=== PATIENT | female | born 1965 | race Caucasian/White ===

== ENCOUNTER → 2021-02-07 | Outpatient (CLI) | payer OTHER ==
[~2021-02-07] MED LIST: ASPIR 8181 MG PO; BENTYL 20MG TAB20 MG PO; FLEXERIL 10 MG10 MG PO; IBUPROFEN600 MG PO; PENVEE K 500 M500 MG PO; TENORMIN 25 MG25 MG PO; ZOFRAN ODT 4 MG4 MG PO
[2021-02-08 12:12] LABS: RHEUMATOID ARTHRITIS FACTOR <10.0 IU/mL (0.0-13.9)
[2021-02-09 00:06] LABS: CCP ANTIBODIES IGG/IGA 3 units (0-19)
== END ==
LOC: LAB 11:06
PROVIDERS: Nurse Practitioner Family
DX: M25.562 Pain in left knee (principal); M25.561 Pain in right knee; M25.50 Pain in unspecified joint; D89.9 Disorder involving the immune mechanism, unspecified; R76.8 Other specified abnormal immunological findings in serum; M17.0 Bilateral primary osteoarthritis of knee
CPT/HCPCS: 36415; 73565; 82550; 82728; 83520; 85652; 86140; 86200; 86431

== ENCOUNTER 2022-04-16 10:00 | Emergency (ER) | payer MEDICARE, OTHER ==
[2022-04-16 11:36] LABS: HEMOGLOBIN 14.8 gm/dl (12.3-15.3); RED BLOOD COUNT 4.82 M/UL (4.00-5.10); WHITE BLOOD COUNT 10.9 K/UL (4.5-11.0)
[2022-04-16 12:06] LABS: BUN/CREATININE RATIO 16 (0-10)
[2022-04-16] MEDS ORDERED: ECOTRIN81 MG PO (13:08)
== END 2022-04-16 14:36 | disposition home or self-care (01) ==
LOC: ER1 10:00
PROVIDERS: Physician Assistant
DX: R07.89 Other chest pain (principal); J44.9 Chronic obstructive pulmonary disease, unspecified; F17.210 Nicotine dependence, cigarettes, uncomplicated; Z88.5 Allergy status to narcotic agent; Z79.82 Long term (current) use of aspirin
CPT/HCPCS: 71045; 80053; 82550; 82553; 84484; 85025; 93005; 99285